=== PATIENT | male | born 1955 ===

== ENCOUNTER 2023-11-18 11:11 | Outpatient (AMB) | payer OTHER, SELFPAY ==
--- NOTE | 2023-11-18 11:13 | MHC.OFFVIS ---
Intake Vital Signs 11/18/23 11:14 Height 5 ft 7 in Weight 165 lb 8 oz BMI 25.9 BP 148/88 H Blood Pressure Location Rt brachial Position Sitting Pulse 105 H Pulse Source Pulse Oximeter Pulse Oximetry (%) 97 Oxygen Delivery Method Room Air Intake Visit Reasons: ENP-Ulnar Neuropathy le - LVM Intake Note: Pt presents to the office today for a new patient ulnar neuropathy visit. Allergies aspirin Allergy (Intermediate, Verified 11/18/23 11:16) Swelling ibuprofen Allergy (Intermediate, Verified 11/18/23 11:16) Swelling Medication List - Last Reconciled 11/18/23 by Yas Coles MD amlodipine 10 mg PO DAILY atorvastatin 40 mg PO DAILY fluticasone propionate 50 mcg/actuation sprays intranasal montelukast 10 mg PO DAILY HPI HPI Comments History of Present Illness Details 68y/o right handed male comes for numbness , in his right ring and little finger. He also has some numbness and discomfort in his right elbow. It started about 3-4 months. It is persistent and he is not able to identify any exacerbating or reliving factors. He denies nay neck pain or any left hand symptoms He also has left leg cramps at night- usually moving around or applying cold helps. He has h/o sleep apnea and is on CPAP ON LICENSE OF [facility] Medical History (Updated 11/18/23 @ 12:13 by Yas Coles MD) Numbness and tingling in right hand COVID HTN (hypertension) Colon adenoma Nasal polyps NSTEMI (non-ST elevated myocardial infarction) SARAH on CPAP Asthma Hyperlipidemia Diabetes Social History Household Members: None Housing: House Alcohol intake: never Patient Tobacco Use Status: Never used Tobacco Review of Systems ENT Reports Normal hearing present Neuro Reports Normal hearing present Physical Exam Vital Signs: Last Vital Signs Pulse 105 H 11/18/23 11:14 BP 148/88 H 11/18/23 11:14 Pulse Ox 97 11/18/23 11:14 Oxygen Delivery Method Room Air 11/18/23 11:14 BMI result Body Mass Index 25.9 Const General: cooperative, healthy appearing, comfortable and no acute distress Nutritional Appearance: average body habitus Orientation/consciousness: patient oriented x3 Limitations: no limitations Eyes Pupils: Equal, round and reactive pupils present Neuro General: patient oriented x3, gait normal, tone normal, moves all extremities and no focal motor deficits Cranial nerves: Yes Facial sensation intact/muscles of mastication intact, Yes Equal, round and reactive pupils present, Yes Bilaterally intact EOM present, Yes Nystagmus not present, Yes Normal facial strength present, Yes Midline tongue present, Yes Symmetric palate elevation present, Yes Normal hearing present and Yes Ability to bilaterally elevate shoulders present Cognition (Neuro): normal cognition Gait exam (Neuro): Normal gait present Motor exam (neuro): 5/5 motor strength present throughout and Normal motor muscle tone present throughout Deep tendon reflexes (DTR's): Right triceps reflex intensity grade: 2+, Left triceps reflex intensity grade: 2+, Rt Biceps (C5, C6): 2+, Left biceps reflex intensity grade: 2+, Right brachioradialis reflex intensity grade: 2+, Left brachioradialis reflex intensity grade: 2+, Right patellar reflex intensity grade: 2+ and Left patellar reflex intensity grade: 2+ Coordination: [id number] test normal Assessment & Plan Assessment & Plan (1) Numbness and tingling in right hand: Comment: ? ulnar neuropathy Code(s): R20.0 - Anesthesia of skin; R20.2 - Paresthesia of skin Plan I will schedule him for EMG NCS for further evaluation Suggested Magnesium 250-400 mg qhs for nocturnal cramps. Orders: Orders NE electromyogram (EMG) Today R20.0 - Anesthesia of skin, R20.2 - Paresthesia of skin Coding Level of Care Code New Pt Level 4 (95861) Diagnoses Numbness and tingling in right hand R20.0; R20.2
[2023-11-18 11:14] VITALS: BP 148/88; PULSE 105; O2SAT 97; BMI 25.9
== END 2023-11-18 11:44 | disposition home or self-care (01) ==
PROVIDERS: PCP Internal Medicine; Visit Provider Psychiatry & Neurology Neurology
DX: R20.0 Anesthesia of skin (principal); R20.2 Paresthesia of skin
CPT/HCPCS: 99204

== ENCOUNTER → 2023-11-18 11:11 | Outpatient (BNVA) | payer OTHER, SELFPAY | PROVIDERS: PCP Internal Medicine; Visit Provider Psychiatry & Neurology Neurology | DX: R20.0 Anesthesia of skin (principal); R20.2 Paresthesia of skin | CPT/HCPCS: 99202 ==

== ENCOUNTER 2023-12-25 13:08 | Outpatient (REF) | payer MEDICARE, SELFPAY ==
--- NOTE | 2023-12-25 13:12 | EMG_ITS ---
Chief complaint: Right hand numbness Reason for referral: Evaluate ulnar neuropathy Referred by: Dr. Coles Procedure done: Right upper extremity NCS/EMG Precautions and/or limitations: None The limb temperature was monitored continuously and remained between 32-36 degrees C during the performance of the NCS. Ulnar motor NCS was performed with moderate elbow flexion between 70-90 degrees, with across-elbow distance of 10 cm. Nerve Conduction Studies Anti Sensory Summary Table ?Stim Site NR Onset (ms) Norm Onset (ms) Peak (ms) Norm Peak (ms) O-P Amp (?V) Norm O-P Amp Site1 Site2 Delta-0 (ms) Dist (cm) Ilan (m/s) Norm Ilan (m/s) Right Median Anti Sensory (2nd Digit) Wrist ? 3.5 5.5 <3.6 12.8 >10 Wrist 2nd Digit 3.5 14.0 40 Right Radial Anti Sensory (Thumb) Forearm ? 1.7 2.2 <3.1 22.5 Forearm Thumb 1.7 0.0 Right Ulnar Anti Sensory (5th Digit) Wrist ? 2.3 3.1 <3.7 11.8 >15.0 Wrist 5th Digit 2.3 14.0 61 Motor Summary Table ?Stim Site NR Onset (ms) Norm Onset (ms) O-P Amp (mV) Norm O-P Amp iAmp (mV) Amp (1st) (%) Site1 Site2 Delta-0 (ms) Dist (cm) Ilan (m/s) Norm Ilan (m/s) Right Median Motor (Abd Poll Brev) Wrist ? 5.9 <3.9 8.8 >4.5 11.2 100.0 Elbow Wrist 4.7 23.5 50 >45 Elbow ? 10.6 8.6 11.1 97.7 Right Ulnar Motor (Abd Dig Minimi) Wrist ? 2.8 <3.0 9.2 >5 11.0 100.0 B Elbow Wrist 4.2 23.0 55 >45 B Elbow ? 7.0 7.1 9.1 77.2 A Elbow B Elbow 1.6 10.0 63 >45 A Elbow ? 8.6 6.7 8.8 72.8 Right Ulnar Motor (FDI) Wrist ? 4.0 <3.0 5.7 >5 7.8 100.0 B Elbow Wrist 4.0 23.0 58 B Elbow ? 7.9 4.6 6.2 80.7 A Elbow B Elbow 3.9 10.0 26 >45 A Elbow ? 9.2 4.4 5.8 77.2 1.3 0.0 >45 EMG ?Side Muscle Nerve Root Ins Act Fibs Psw Amp Dur Poly Recrt Int Pat Comment Right 1stDorInt Ulnar C8-T1 Nml Nml Nml Nml Nml 0 Nml Complete Right FlexCarRad Median C6-7 Nml Nml Nml Incr Incr 0 Reduced Complete Right Biceps Musculocut C5-6 Nml Nml Nml Nml Nml 0 Nml Complete Right Triceps Radial C6-7-8 Nml Nml Nml Incr Incr 0 Nml Complete Right Deltoid Axillary C5-6 Nml Nml Nml Incr Incr 0 Nml Complete Right FlexCarpiUln Ulnar C8,T1 Nml Nml Nml Nml Nml 0 Nml Complete Paraspinal EMG ?Side Muscle Nerve Root Ins Act Fibs Psw Comment Right Cervical Upper Rami Nml Nml Nml Right Cervical Mid Rami Nml Nml Nml Right Cervical Lower Rami Nml Nml Nml FINDINGS: Right median motor nerve showed prolonged distal latency, normal amplitude and normal conduction velocity. Right ulnar motor nerve, recording at FDI, showed prolonged distal latency, normal amplitude and slow conduction velocity across the elbow. Right median sensory nerve showed prolonged peak latency. Right ulnar sensory nerve showed normal peak latency but small amplitude. All other nerves tested were within normal. Concentric needle EMG was performed in selected muscles of the right upper extremity and cervical paraspinals. Study revealed Signs of electric abnormalities as shown in the table below. Right FCR showed reduced recruitment, increased amplitude and duration. Right deltoids and triceps showed increased amplitude and duration. IMPRESSION: 1. This is an abnormal study. 2. There is electrodiagnostic evidence for right moderate-severe median neuropathy at the wrist, consistent with Carpal Tunnel Syndrome. 3. There is electrodiagnostic evidence for ulnar neuropathy at the elbow. 4. There are electrodiagnostic findings suggestive for subacute/chronic cervical radiculopathy, affecting C6/C7 nerve roots. CLINICAL COMMENT: Further clinical correlation recommended. Thank you for your kind referral. Kerline Ortiz MD, SCOTTY Board Certified, [place] [employer] and [employer] (ABPMR) Board Certified, [place] [employer] Electro[employer] (ABEM) CODIN [id number] MTDD
== END 2023-12-25 13:09 | disposition home or self-care (01) ==
LOC: HO.NEURO 13:08
PROVIDERS: Visit Provider Psychiatry & Neurology Neurology
DX: R20.2 Paresthesia of skin (principal); R20.0 Anesthesia of skin
CPT/HCPCS: 95886; 95909

== ENCOUNTER → 2023-12-25 13:12 | Outpatient (BNV) | payer MEDICARE, SELFPAY | PROVIDERS: Visit Provider Physical Medicine & Rehabilitation | DX: G56.01 Carpal tunnel syndrome, right upper limb (principal); G56.11 Other lesions of median nerve, right upper limb | CPT/HCPCS: 95886; 95909 ==